=== PATIENT | male | born 1935 | race African-American/Black ===

== ENCOUNTER 2016-10-13 23:43 | Emergency (ER) | payer MEDICARE, OTHER ==
[~2016-10-13] VITALS: Ht 190.5 cm; Wt 103.0 kg
[~2016-10-13 23:43] MED LIST: ADAL30TA10 PO; ASPI81TA82 PO; DYAZ37.52 PO; LORT5TAB PO; METO50TA PO; MEVA40TA6 PO; NITR0.2D2 TD; PRIN20TA2 PO; PROT40TA PO; TAMS0.4C67 PO
[2016-10-13 23:45] VITALS: BP 209/99; PULSE 59; RESP 16; TEMP 98.4; O2SAT 98
[2016-10-14] MEDS ORDERED: DUTA1CAP2 PO (02:43)
[2016-10-14] MEDS ORDERED: PRAZ2CAP PO (02:43)
[2016-10-14] MEDS ORDERED: CARV25TA PO (02:43)
[2016-10-14] MEDS ORDERED: CARB25TA9 PO (02:43)
[2016-10-14] MEDS ORDERED: PRAZ1CAP PO (02:43)
[2016-10-14] MEDS ORDERED: PANT40TA3 PO (02:43)
[2016-10-14] MEDS ORDERED: ISOS30TA3 PO (02:43)
[2016-10-14] MEDS ORDERED: ATOR20TA15 PO (02:43)
[2016-10-14] MEDS ORDERED: ASPI81TA81 PO (02:43)
[2016-10-14 02:44] VITALS: BP 198/93; PULSE 63; RESP 16; O2SAT 98
--- NOTE | 2016-10-14 02:56 | PD ---
HPI Chief Complaint: Hypertension Time Seen by Provider: 02:17 Travel History International Travel<30 days: No Contact w/Intl Traveler<30days: No Traveled to known affect area: No History of Present Illness HPI The patient is an 81 year old male who presents to the [facility] emergency department with a history of elevated blood pressure noted this evening when he was taking his blood pressure for his neurologist. The patient reports that 3 weeks ago his nifedipine was discontinued and his Prazosin dose was greatly diminished. He reports that this was done when he was diagnosed with suspected Parkinson's by his neurologist. He reports that his neurologist discussed changing his blood pressure medication regimen as she was concerned that his blood pressure may drop with treatment for the Parkinson's. The patient reports that each evening he has been checking his blood pressure while sitting and standing. He reports that it continued to be well under control up until this evening. He denies having any headache, neck pain, chest pain, chest pressure, or shortness of breath. He denies having any difficulty with word finding ability, one-sided weakness, facial droop, dizziness, vision changes, or numbness or tingling to his extremities. Review of systems otherwise, the patient denies having any cough or congestion, abdominal pain, nausea, vomiting , or diarrhea. The patient reports that when he noticed that his blood pressure was high he took an extra dose of his isosorbide and a half of an extra pill of his Coreg. [facility] Past Medical History Narrative Medical The patient's past medical history is significant for hypertension, history of Parkinson's, hyperlipidemia, history of peripheral arterial disease, history of an abdominal aortic aneurysm status post repair, history of benign prostatic hypertrophy, acid reflux, arthritis. Arthritis: Yes Heart Rhythm Problems: Yes Cancer: No Cardiac Catheterization: Yes (X 1) Cardiovascular Problems: Yes High Cholesterol: Yes Coronary Artery Disease: Yes Diabetes: Yes (RESOLVED WITH WEIGHT LOSS) Patient Takes Glucophage: No Diminished Hearing: No Endocrine: Yes Gastrointestinal Disorders: No Genitourinary: Yes Hypertension: Yes Immune Disorder: No Implanted Vascular Access Dvce: No Musculoskeletal: Yes Neurologic: No Psychiatric: No Reproductive: No Respiratory: Yes (PNEUMONIA) Immunizations Current: Yes Myocardial Infarction: Yes Tetanus Vaccination: Unknown Influenza Vaccination: No Past Surgical History Narrative Surgical The patient's past surgical history is significant for an endovascular repair of an abdominal aortic aneurysm with a bilateral common iliac artery angioplasty in 2010. Abdominal Aneurysm Repair: Yes Abdominal Surgery: Yes (AAA REPAIR) Coronary Artery Bypass Graft: No Other Surgery: No Social History Alcohol Use: No Tobacco Use: No Substance Use: No Allergies-Medications (Allergen,Severity, Reaction): Coded Allergies: No Known Allergies (Verified , 11/04/12) Reported Meds & Prescriptions Reported Meds & Active Scripts Active Reported Aspir-81 (Aspirin) 81 Mg Tabdr 162 Mg PO DAILY Dutasteride 0.5 Mg Cap 0.5 Mg PO DAILY Carbidopa-Levodopa 25-100 Mg Tab 1.5 Tab PO TID Pantoprazole (Pantoprazole Sodium) 40 Mg Tab 40 Mg PO DAILY Atorvastatin (Atorvastatin Calcium) 20 Mg Tab 20 Mg PO HS Prazosin (Prazosin HCl) 1 Mg Cap 1 Mg PO NOON Prazosin (Prazosin HCl) 2 Mg Cap 2 Mg PO BID Isosorbide Mononitrate ER (Isosorbide Mononitrate) 30 Mg Julia 30 Mg PO DAILY Carvedilol 25 Mg Tab 25 Mg PO BID Review of Systems Except as stated in HPI: all other systems reviewed are Neg General / Constitutional: No: Fever Eyes: No: Visual changes HENT: No: Headaches Cardiovascular: No: Chest Pain or Discomfort Respiratory: No: Shortness of Breath Gastrointestinal: No: Abdominal Pain Genitourinary: No: Dysuria Musculoskeletal: No: Pain Skin: No Rash Neurologic: No: Weakness, Focal Abnormalities, Change in Mentation, Slurred Speech, Sensory Disturbance Psychiatric: No: Depression Endocrine: No: Polydipsia Hematologic/Lymphatic: No: Easy Bruising Physical Exam Narrative General: The patient is a well-developed well-nourished male in no acute distress. Head and Neck exam: Head is normocephalic atraumatic. Eyes: EOMI, pupils are equal round and reactive to light. Nose: Midline septum with pink mucous membranes Mouth: Dentition unremarkable. Moist mucus membranes. Posterior oropharynx is not erythematous. No tonsillar hypertrophy. Uvula midline. Airway patent. Neck: No palpable lymphadenopathy. No nuchal rigidity. No thyromegaly. Cardiovascular: Regular rate and rhythm without murmurs, gallops, or rubs. Lungs: Clear to auscultation bilaterally. No wheezes, rhonchi, or rales. Abdomen: Soft, without tenderness to palpation in all 4 quadrants of the abdomen. No guarding, rebound, or rigidity. Normal bowel sounds are audible. Extremities: No clubbing, cyanosis, or edema. 2+ pulses in all 4 extremities. No calf tenderness on palpation. Back: No spinous process tenderness to palpation. No costovertebral angle tenderness to palpation. Neurologic Exam: Cranial nerves 2-12 were intact on exam. Strength is 5/5 in all 4 extremities. No sensory deficits noted. Skin Exam: No rash noted. Intact skin that is warm and dry. Data Data Last Documented VS Vital Signs Date Time Temp Pulse Resp B/P Pulse Ox O2 Delivery O2 Flow Rate FiO2 10/14/16 04:34 68 18 208/93 99 Room Air 10/13/16 23:45 98.4 MDM Medical Decision Making Medical Screen Exam Complete: Yes Emergency Medical Condition: Yes Medical Record Reviewed: Yes Differential Diagnosis Hypertension related to dietary indiscretions, versus hypertension related to recent blood pressure medication changes Narrative Course During the course of the patients emergency department visit, the patients history, examination, and differential diagnosis were reviewed with the patient. The patient is currently asymptomatic. He has no neurologic symptoms, headache, neck pain chest pain, or shortness of breath. The patient was monitored in the emergency department. The patient's blood pressure continues to be elevated although he continues to be asymptomatic. He did take an extra dose of 2 of his blood pressure medications. I explained that these are slower acting will take time to become effective. I recommended that the patient follow-up with his cabinet maker and neurologist today by phone to discuss the elevated blood pressure related to the changes in his blood pressure medication regimen. The patient is resting comfortably and feels better, is alert and in no distress. The patients examination findings were discussed with the patient. The repeat examination is unremarkable and benign. The history, exam, diagnostic testing, and current condition do not suggest any significant pathology to warrant further testing, continued ED treatment, admission, or surgical evaluation at this point. The vital signs have been stable. The patient does not have uncontrollable pain, intractable vomiting, or other significant symptoms. The patient's condition is stable and appropriate for discharge. The patient will pursue further outpatient evaluation with a primary care physician or other designated or consulting physician as indicated in the discharge instructions. The patient expressed understanding and was agreeable with this plan. Diagnosis Primary Impression: Hypertension Qualified Code: I10 - Essential hypertension Referrals: Supervisor [employer] 1 day Neurologist 1 day Patient Instructions: General Instructions, Hypertension (ED) Additional Instructions: The patient was instructed to follow-up with his neurologist and cabinet maker today regarding the changes in his blood pressure medication regimen and his recent increase in blood pressure. The patient was instructed to return back to the emergency department immediately if he develops any new symptoms related to this. Med/Other Pt SpecificInfo: No Change to Meds Disposition: 01 DISCHARGE HOME Condition: Stable Luz Ortiz MD Oct 14, 2016 02:56
[2016-10-14 04:34] VITALS: BP 208/93; PULSE 68; RESP 18; O2SAT 99
== END 2016-10-14 04:46 | disposition home or self-care (01) ==
LOC: NEPC 23:43
DX: I10 Essential (primary) hypertension (principal)
CPT/HCPCS: 99283